=== PATIENT | male | born 1945 | race Caucasian/White ===

== ENCOUNTER 2021-10-01 09:41 | Inpatient (IN) | payer MEDICARE ==
[2021-10-01] MEDS ORDERED: Iopamidol-370 76% 500 ML 1 ML ONE (11:00)
[2021-10-01 11:03] LABS: #Lymphocytes 0.8 thou/uL (1.20-3.40); #Neutrophils 6.9 thou/uL (1.40-6.50); %Basophils 0.1 % (0.0-1.0); %Eosinophils 0.5 % (0.0-10.0); %Lymphocytes 9.2 % (21.0-51.0); %Monocytes 11.3 % (0.0-10.0); %Neutrophils 78.9 % (42.0-75.0); Hemoglobin 13.5 g/dL (14.0-18.0); Mean Corpuscular HGB CONC 32.6 g/dL (32.0-36.0); Mean Corpuscular Hemoglobin 34.3 pg (27.0-31.0); Mean Platelet Volume 9.5 fL (7.4-10.4); Platelet Count 241 thou/uL (130-400); RBC Distribution Width 13.3 % (11.5-14.5); Red Blood Cell (RBC) Count 3.95 mill/uL (4.70-6.10); White Blood Cell (WBC) Count 8.8 thou/uL (4.8-10.8)
[2021-10-01 11:50] LABS: ALT (SGPT) 16 U/L (8-55); AST (SGOT) 23 U/L (5-34); Albumin 3.9 g/dL (3.4-4.8); Alkaline Phosphatase 58 U/L (40-110); Anion Gap 20 mmol/L (10-20); BUN (Urea Nitrogen) 21 mg/dL (8.4-25.7); Calc. Creatinine Clearance 0 mL/min (70-130); Calcium 9.7 mg/dL (7.8-10.44); Carbon Dioxide 22 mmol/L (23-31); Chloride 108 mmol/L (98-107); Globulin 2.7 g/dL (2.4-3.5); Glucose 65 mg/dL (83-110); Lipase 9 U/L (8-78); Potassium 4.3 mmol/L (3.5-5.1); Protein, Total 6.6 g/dL (5.8-8.1); Sodium 146 mmol/L (136-145)
[2021-10-01] MEDS ORDERED: Acetaminophen 650 MG Suppository PR PRN (16:05)
[2021-10-01] MEDS ORDERED: Ondansetron PF 4 MG/2 ML Vial IVP PRN (16:05)
[2021-10-01] MEDS ORDERED: Calcium Carbonate 500 MG ChewTAB PO PRN (16:05)
[2021-10-01] MEDS ORDERED: Acetaminophen 325 MG TAB PO PRN (16:05)
[2021-10-01] MEDS ORDERED: Ondansetron ODT 4 MG TAB PO PRN (16:05)
[2021-10-01 16:46] VITALS: BMI 29.0
[2021-10-01] MEDS: Lactated Ringer's 1,000 ML IV SCH (17:47)
[2021-10-01] MEDS: Ketorolac Tromethamine 30 MG/ML VIAL IVP PRN (18:23)
[2021-10-02] MEDS: Lactated Ringer's 1,000 ML IV SCH (05:27)
[2021-10-02 07:29] LABS: ALT (SGPT) 12 U/L (8-55); AST (SGOT) 17 U/L (5-34); Alkaline Phosphatase 45 U/L (40-110); Anion Gap 17 mmol/L (10-20); BUN (Urea Nitrogen) 19 mg/dL (8.4-25.7); Bilirubin, Total 0.7 mg/dL (0.2-1.2); Calc. Creatinine Clearance 70 mL/min (70-130); Calcium 8.8 mg/dL (7.8-10.44); Carbon Dioxide 21 mmol/L (23-31); Chloride 112 mmol/L (98-107); Globulin 2.5 g/dL (2.4-3.5); Phosphorus 2.8 mg/dL (2.3-4.7); Potassium 3.6 mmol/L (3.5-5.1); Protein, Total 5.5 g/dL (5.8-8.1); Sodium 146 mmol/L (136-145)
[2021-10-02 07:32] LABS: Glucose 59 mg/dL (83-110)
[2021-10-02] MEDS ORDERED: Enoxaparin Sodium 40 MG/0.4 ML SYRINGE SC SCH (09:00)
[2021-10-02] MEDS: Dextrose 5%-Lactated Ringers 1,000 ML IV SCH ×2 (09:13→20:19)
[2021-10-02 12:01] LABS: SARS-CoV-2 PCR by NAA Not Detected (NotDetected)
[2021-10-02] MEDS: Nystatin 500,000 UNITS/5 ML UDCUP SSW SCH ×3 (12:52→20:20)
[2021-10-02] MEDS: Chlorhexidine Gluconate 15 ML UDCUP SSP SCH (14:44)
[2021-10-03] MEDS: Dextrose 5%-Lactated Ringers 1,000 ML IV SCH ×2 (05:27→14:33)
[2021-10-03] MEDS ORDERED: Dextrose 5% in Water 1,000 ML IV PRN (09:15)
[2021-10-03] MEDS ORDERED: Dextrose 50% Abboject 50 ML SYRINGE SLOW IVP PRN (09:15)
[2021-10-03] MEDS ORDERED: Fentanyl 100 MCG/2 ML VIAL ONE (09:19)
[2021-10-03] MEDS ORDERED: Phenylephrine 10 MG/ML VIAL ONE (09:19)
[2021-10-03] MEDS ORDERED: Lidocaine 1% PF 5 ML VIAL ONE (09:20)
[2021-10-03] MEDS ORDERED: PROPOFOL 200 MG/20 ML VIAL ONE (09:20)
[2021-10-03] MEDS: Nystatin 500,000 UNITS/5 ML UDCUP SSW SCH ×4 (10:56→20:33)
[2021-10-03] MEDS: Chlorhexidine Gluconate 15 ML UDCUP SSP SCH (10:56)
[2021-10-03 11:56] LABS: Anion Gap 10 mmol/L (10-20); BUN (Urea Nitrogen) 8 mg/dL (8.4-25.7); Calc. Creatinine Clearance 84 mL/min (70-130); Calcium 8.8 mg/dL (7.8-10.44); Carbon Dioxide 28 mmol/L (23-31); Chloride 108 mmol/L (98-107); Glucose 131 mg/dL (83-110); Phosphorus 1.7 mg/dL (2.3-4.7); Potassium 3.2 mmol/L (3.5-5.1); Sodium 143 mmol/L (136-145)
[2021-10-03] MEDS: Ketorolac Tromethamine 30 MG/ML VIAL IVP PRN (12:35)
[2021-10-03] MEDS ORDERED: Dextrose 5%-Lactated Ringers 1,000 ML IV SCH (17:51)
[2021-10-03] MEDS ORDERED: Electrolyte Replacement Protocol 1 EACH FS SCH (18:00)
[2021-10-03] MEDS ORDERED: Amino Acids 4.25 %/Dextrose 5% 2,000 ML BAG IV SCH ×3 (18:00)
[2021-10-03] MEDS ORDERED: Electrolyte Replacement Protocol FS PRN (18:00)
[2021-10-03] MEDS ORDERED: Amino Acids 4.25 %/Dextrose 5% 1,000 ML IV SCH (18:15)
[2021-10-03] MEDS ORDERED: Potassium Chloride 20 MEQ in Premix Bag 1 BAG IVPB SCH (18:15)
[2021-10-03] MEDS ORDERED: Potassium Phosphate 15 MMOL in Sodium Chloride 0.9% 250 ML 250 ML IVPB SCH (20:15)
[2021-10-04 05:47] LABS: Anion Gap 9 mmol/L (10-20); BUN (Urea Nitrogen) 7 mg/dL (8.4-25.7); Calc. Creatinine Clearance 87 mL/min (70-130); Calcium 8.2 mg/dL (7.8-10.44); Carbon Dioxide 25 mmol/L (23-31); Chloride 109 mmol/L (98-107); Glucose 112 mg/dL (83-110); Potassium 3.3 mmol/L (3.5-5.1); Sodium 140 mmol/L (136-145)
[2021-10-04 06:14] LABS: Phosphorus 2.5 mg/dL (2.3-4.7)
[2021-10-04] MEDS ORDERED: Potassium Chloride 40 MEQ in Sodium Chloride 0.9% 250 ML 250 ML IVPB SCH ×2 (07:15→13:45)
[2021-10-04] MEDS: Nystatin 500,000 UNITS/5 ML UDCUP SSW SCH ×4 (08:47→22:21)
[2021-10-04] MEDS: Chlorhexidine Gluconate 15 ML UDCUP SSP SCH (08:47)
[2021-10-04] MEDS ORDERED: CEFAZOLIN 2 GM in Premix Bag 1 BAG IVPB SCH (10:30)
[2021-10-04 11:50] LABS: Potassium 3.2 mmol/L (3.5-5.1)
[2021-10-04] MEDS: Scopolamine 1.5 mg/72 hour Patch TD SCH (12:32)
[2021-10-04] MEDS ORDERED: FLU VACC QS2021-22(65YR UP)/PF 240 MCG/0.7 ML SYRINGE IM ONE (17:00)
[2021-10-04] MEDS ORDERED: AA 4.25 %/CALCIUM/LYTES/D5W 2,000 ML IV SCH (18:15)
[2021-10-04 23:40] LABS: Potassium 3.2 mmol/L (3.5-5.1)
[2021-10-05] MEDS ORDERED: CEFAZOLIN 2 GM, Admixture Fee 1 EACH in Sodium Chloride 0.9% 100 ML IVPB SCH (06:15)
[2021-10-05] MEDS ORDERED: Fentanyl 100 MCG/2 ML VIAL ONE ×2 (06:44→09:40)
[2021-10-05 06:57] LABS: Phosphorus 2.6 mg/dL (2.3-4.7)
[2021-10-05 07:00] LABS: Anion Gap 13 mmol/L (10-20); BUN (Urea Nitrogen) 11 mg/dL (8.4-25.7); Calc. Creatinine Clearance 86 mL/min (70-130); Calcium 8.7 mg/dL (7.8-10.44); Carbon Dioxide 24 mmol/L (23-31); Chloride 105 mmol/L (98-107); Glucose 93 mg/dL (83-110); Potassium 3.5 mmol/L (3.5-5.1); Sodium 138 mmol/L (136-145)
[2021-10-05] MEDS ORDERED: Bupivacaine PF 0.5% 30 ML VIAL ONE (07:22)
[2021-10-05] MEDS ORDERED: Lidocaine 1% w/Epinephrine 1:100K 20 ML VIAL ONE (07:22)
[2021-10-05] MEDS ORDERED: SUGAMMADEX SODIUM 200 MG/2 ML VIAL ONE (07:50)
[2021-10-05] MEDS ORDERED: PROPOFOL 200 MG/20 ML VIAL ONE (08:07)
[2021-10-05] MEDS ORDERED: Albuterol Sulfate HFA (OR ONLY) ONE (08:07)
[2021-10-05] MEDS ORDERED: Dexamethasone 20 MG/5 ML VIAL ONE (08:07)
[2021-10-05] MEDS ORDERED: PHENYLEPHRINE-NS 100 MCG/ML 10 ML SYRINGE ONE (08:07)
[2021-10-05] MEDS ORDERED: Rocuronium Bromide 10 MG/ML (10ML VIAL) ONE (08:07)
[2021-10-05] MEDS ORDERED: Glycopyrrolate 0.2 MG/ML 5 ML SYRINGE ONE (08:07)
[2021-10-05] MEDS ORDERED: Ondansetron PF 4 MG/2 ML Vial ONE (08:07)
[2021-10-05] MEDS ORDERED: ePHEDrine 50 MG/ML VIAL ONE (08:07)
[2021-10-05] MEDS ORDERED: Lidocaine 1% PF 5 ML VIAL ONE (08:07)
[2021-10-05] MEDS ORDERED: Potassium Chloride 40 MEQ in Sodium Chloride 0.9% 250 ML 250 ML IVPB SCH (08:45)
[2021-10-05] MEDS ORDERED: Morphine 4 MG/ML VIAL SLOW IVP PRN ×2 (09:14→11:24)
[2021-10-05] MEDS: Nystatin 500,000 UNITS/5 ML UDCUP SSW SCH ×4 (10:52→21:05)
[2021-10-05] MEDS: Chlorhexidine Gluconate 15 ML UDCUP SSP SCH (10:52)
[2021-10-05 17:07] LABS: Potassium 3.9 mmol/L (3.5-5.1)
[2021-10-06 10:10] LABS: #Basophils 0.1 thou/uL (0.0-0.2); #Eosinphils 0.2 thou/uL (0.0-0.7); #Lymphocytes 0.9 thou/uL (1.20-3.40); #Monocytes 1.1 thou/uL (0.11-0.59); #Neutrophils 7.5 thou/uL (1.40-6.50); %Basophils 0.7 % (0.0-1.0); %Eosinophils 1.5 % (0.0-10.0); %Lymphocytes 9.6 % (21.0-51.0); %Monocytes 11.5 % (0.0-10.0); %Neutrophils 76.7 % (42.0-75.0); Hemoglobin 13.6 g/dL (14.0-18.0); Mean Corpuscular HGB CONC 33.7 g/dL (32.0-36.0); Mean Corpuscular Hemoglobin 35.4 pg (27.0-31.0); Mean Platelet Volume 9.6 fL (7.4-10.4); Platelet Count 188 thou/uL (130-400); RBC Distribution Width 13.1 % (11.5-14.5); Red Blood Cell (RBC) Count 3.84 mill/uL (4.70-6.10); White Blood Cell (WBC) Count 9.8 thou/uL (4.8-10.8)
[2021-10-06] MEDS: Nystatin 500,000 UNITS/5 ML UDCUP SSW SCH ×4 (10:12→20:33)
[2021-10-06] MEDS: Chlorhexidine Gluconate 15 ML UDCUP SSP SCH (10:12)
[2021-10-06 10:21] LABS: Anion Gap 10 mmol/L (10-20); BUN (Urea Nitrogen) 14 mg/dL (8.4-25.7); Calc. Creatinine Clearance 79 mL/min (70-130); Calcium 9.1 mg/dL (7.8-10.44); Carbon Dioxide 27 mmol/L (23-31); Chloride 106 mmol/L (98-107); Glucose 99 mg/dL (83-110); Phosphorus 2.7 mg/dL (2.3-4.7); Potassium 3.8 mmol/L (3.5-5.1); Sodium 139 mmol/L (136-145)
[2021-10-07 06:35] LABS: #Basophils 0.1 thou/uL (0.0-0.2); #Eosinphils 0.4 thou/uL (0.0-0.7); #Lymphocytes 0.8 thou/uL (1.20-3.40); #Monocytes 0.9 thou/uL (0.11-0.59); #Neutrophils 4.8 thou/uL (1.40-6.50); %Basophils 1.8 % (0.0-1.0); %Eosinophils 5.9 % (0.0-10.0); %Lymphocytes 11.7 % (21.0-51.0); %Neutrophils 67.6 % (42.0-75.0); Hemoglobin 13.1 g/dL (14.0-18.0); Mean Corpuscular HGB CONC 33.5 g/dL (32.0-36.0); Mean Corpuscular Hemoglobin 35.2 pg (27.0-31.0); Mean Platelet Volume 9.8 fL (7.4-10.4); Platelet Count 186 thou/uL (130-400); RBC Distribution Width 13.2 % (11.5-14.5); Red Blood Cell (RBC) Count 3.71 mill/uL (4.70-6.10); White Blood Cell (WBC) Count 7.1 thou/uL (4.8-10.8)
[2021-10-07 06:53] LABS: Phosphorus 2.8 mg/dL (2.3-4.7)
[2021-10-07 06:55] LABS: Anion Gap 12 mmol/L (10-20); BUN (Urea Nitrogen) 14 mg/dL (8.4-25.7); Calc. Creatinine Clearance 78 mL/min (70-130); Calcium 9.2 mg/dL (7.8-10.44); Carbon Dioxide 25 mmol/L (23-31); Chloride 105 mmol/L (98-107); Glucose 86 mg/dL (83-110); Potassium 4.2 mmol/L (3.5-5.1); Sodium 138 mmol/L (136-145)
[2021-10-07] MEDS: Acetaminophen 325 MG TAB PER TUBE SCH ×3 (08:20→20:22)
[2021-10-07] MEDS: Scopolamine 1.5 mg/72 hour Patch TD SCH (09:09)
[2021-10-07] MEDS: Chlorhexidine Gluconate 15 ML UDCUP SSP SCH (09:09)
[2021-10-07] MEDS: Nystatin 500,000 UNITS/5 ML UDCUP SSW SCH ×4 (09:09→20:27)
[2021-10-08] MEDS: Acetaminophen 325 MG TAB PER TUBE SCH ×4 (01:49→20:39)
[2021-10-08] MEDS: Chlorhexidine Gluconate 15 ML UDCUP SSP SCH (08:02)
[2021-10-08] MEDS: Nystatin 500,000 UNITS/5 ML UDCUP SSW SCH ×4 (08:02→20:40)
[2021-10-08 08:07] LABS: #Basophils 0.1 thou/uL (0.0-0.2); #Eosinphils 0.4 thou/uL (0.0-0.7); #Lymphocytes 0.8 thou/uL (1.20-3.40); #Monocytes 0.8 thou/uL (0.11-0.59); #Neutrophils 4.4 thou/uL (1.40-6.50); %Basophils 1.3 % (0.0-1.0); %Eosinophils 6.3 % (0.0-10.0); %Monocytes 12.8 % (0.0-10.0); %Neutrophils 67.6 % (42.0-75.0); Hemoglobin 13.3 g/dL (14.0-18.0); Mean Corpuscular HGB CONC 32.3 g/dL (32.0-36.0); Mean Corpuscular Hemoglobin 34.5 pg (27.0-31.0); Mean Platelet Volume 9.7 fL (7.4-10.4); Platelet Count 214 thou/uL (130-400); RBC Distribution Width 13.3 % (11.5-14.5); Red Blood Cell (RBC) Count 3.86 mill/uL (4.70-6.10); White Blood Cell (WBC) Count 6.6 thou/uL (4.8-10.8)
[2021-10-08 08:18] LABS: Anion Gap 14 mmol/L (10-20); BUN (Urea Nitrogen) 13 mg/dL (8.4-25.7); Calc. Creatinine Clearance 74 mL/min (70-130); Calcium 9.4 mg/dL (7.8-10.44); Carbon Dioxide 24 mmol/L (23-31); Chloride 104 mmol/L (98-107); Glucose 98 mg/dL (83-110); Potassium 3.8 mmol/L (3.5-5.1); Sodium 138 mmol/L (136-145)
[2021-10-08 08:24] LABS: Phosphorus 3.9 mg/dL (2.3-4.7)
[2021-10-08 11:37] LABS: Fungus Stain Final report (.)
[2021-10-08] MEDS: Melatonin 3 MG TAB PO SCH (20:40)
[2021-10-09] MEDS: Acetaminophen 325 MG TAB PER TUBE SCH ×4 (02:40→20:19)
[2021-10-09] MEDS: Chlorhexidine Gluconate 15 ML UDCUP SSP SCH (09:15)
[2021-10-09] MEDS: Nystatin 500,000 UNITS/5 ML UDCUP SSW SCH ×4 (09:16→20:20)
[2021-10-09] MEDS ORDERED: EPINEPHrine 1 MG/ML AMP ONE ×2 (11:03→13:17)
[2021-10-09] MEDS ORDERED: Fentanyl 100 MCG/2 ML VIAL ONE ×3 (11:09→14:11)
[2021-10-09] MEDS ORDERED: Lidocaine 2% Jelly 5 ML TUBE ONE (11:09)
[2021-10-09] MEDS ORDERED: PROPOFOL 200 MG/20 ML VIAL ONE (12:45)
[2021-10-09] MEDS ORDERED: Ondansetron PF 4 MG/2 ML Vial ONE (12:45)
[2021-10-09] MEDS ORDERED: Rocuronium Bromide 10 MG/ML (10ML VIAL) ONE (12:45)
[2021-10-09] MEDS ORDERED: Dexamethasone 20 MG/5 ML VIAL ONE (12:45)
[2021-10-09] MEDS ORDERED: Glycopyrrolate 0.2 MG/ML 5 ML SYRINGE ONE (12:45)
[2021-10-09] MEDS ORDERED: Promethazine HCl 25 MG/ML VIAL IVPB PRN (14:01)
[2021-10-09] MEDS ORDERED: Ondansetron HCl/PF 4 MG/2 ML Vial IVP PRN (14:01)
[2021-10-09] MEDS ORDERED: Promethazine HCl 25 MG/ML VIAL IM PRN (14:01)
[2021-10-09] MEDS: Melatonin 3 MG TAB PO SCH (20:19)
[2021-10-10] MEDS: Acetaminophen 325 MG TAB PER TUBE SCH ×2 (02:00→08:51)
[2021-10-10] MEDS ORDERED: Nitroglycerin 0.4 MG TAB (25 Tab Bottle) ONE (07:39)
[2021-10-10 08:28] VITALS: BP 97/58; TEMP 97.8
[2021-10-10] MEDS: Nystatin 500,000 UNITS/5 ML UDCUP SSW SCH (08:51)
[2021-10-10] MEDS: Chlorhexidine Gluconate 15 ML UDCUP SSP SCH (08:51)
[2021-10-10] MEDS: Scopolamine 1.5 mg/72 hour Patch TD SCH (08:51)
[2021-10-10 12:50] LABS: SARS-CoV-2 PCR by NAA Not Detected (NotDetected)
== END 2021-10-10 13:31 | disposition home or self-care (01) | DRG 146 ==
LOC: ERS 09:41 → T4-B 14:12
PROVIDERS: ADMIT Family Medicine; ATTEND Family Medicine
PROC: 0DJ08ZZ Inspection of Upper Intestinal Tract, Via Natural or Artificial Opening Endoscopic (ICD-10-PCS; principal; 2021-10-03)
PROC: 0DH64UZ Insertion of Feeding Device into Stomach, Percutaneous Endoscopic Approach (ICD-10-PCS; 2021-10-05)
PROC: 0CBM8ZX Excision of Pharynx, Via Natural or Artificial Opening Endoscopic, Diagnostic (ICD-10-PCS; 2021-10-09)
DX: C14.0 Malignant neoplasm of pharynx, unspecified (principal); E43 Unspecified severe protein-calorie malnutrition; E87.0 Hyperosmolality and hypernatremia; K22.2 Esophageal obstruction; R13.12 Dysphagia, oropharyngeal phase; Z20.822 Contact with and (suspected) exposure to COVID-19; K76.89 Other specified diseases of liver; J44.9 Chronic obstructive pulmonary disease, unspecified; I10 Essential (primary) hypertension; Z98.890 Other specified postprocedural states; Z87.891 Personal history of nicotine dependence; Z68.29 Body mass index [BMI] 29.0-29.9, adult
CPT/HCPCS: 36415; 36416; 70491; 71046; 74177; 80048; 80053; 83690; 84100; 85025; 87070; 87102; 87205; 87206; 88305; J0171; J1100; J1885; J2270; J2370; J2405; J2704; J3010; J3480; J3490; J7050; J7120; Q9967; S0020; U0003; U0005

== ENCOUNTER 2021-10-25 10:29 | Outpatient (CLI) | payer MEDICARE | END 2021-10-25 10:30 | disposition home or self-care (01) | LOC: PET 10:29 | PROVIDERS: ATTEND Internal Medicine Hematology & Oncology | DX: C32.9 Malignant neoplasm of larynx, unspecified (principal); C14.0 Malignant neoplasm of pharynx, unspecified | CPT/HCPCS: 78815; A9552 ==